=== PATIENT | male | born 1995 | race Hispanic/Latino ===

== ENCOUNTER 2024-02-12 08:03 | Emergency (ER) | payer SELFPAY ==
[2024-02-12 08:04] VITALS: BP 142/98; PULSE 79; RESP 14; TEMP 36.6; O2SAT 98; BMI 23.3
--- NOTE | 2024-02-12 08:25 | ED.VIS.GI ---
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) Abdominal Pain/Flank Pain Onset: Days (Onset 3 days ago) Context: Sudden Onset Timing: Continuous and Waxes and wanes Quality: Burning Location: - (Central abdomen) Current Severity: Mild Maximum Severity: Moderate Worsened by: Nothing Relieved by: - (Better after drinking coffee) Nausea/Vomiting/Emesis GI Symptom: Negative for Nausea or Vomiting Diarrhea/Melena/Hematochezia GI Symptom: Positive for Diarrhea; Negative for Melena or Hematochezia Onset: Days Stool Quality: Positive for Loose and Watery Severity: 14 past 24 hours Associated Symptoms Associated Symptoms: Negative for Dysuria, Frequency, Hematuria or Urgency Narrative Narrative: Patient is a 29-year-old male who is a Chilean-speaking individual. Fire Controlman service was used. His past history is remarkable for traumatic kidney injury requiring emergent surgery. He has a midline scar that goes from the xiphoid to the pubic symphysis. He does endorse chills without fever. He does endorse intermittent diaphoresis. He states the pain is burning and outlines a large [place] around his umbilicus send centimeters in diameter. His scar is well-healed. He denies urologic symptoms. He reports diarrhea. Has not noted blood or mucus in the diarrhea. is ill with similar symptoms. She is going to the bathroom frequently but does not have watery stool. He states he went to the urgent care. He was sent here because of his prior surgery and they would not be able to give him any pain medicine. He denies any recent trauma. He denies skin lesions. He denies similar discomfort. Prior similar symptoms: No Recent Illness/Hospitalization: No PFSH PFSH Medical History no medical history no medical history Home Medications dicyclomine 10 mg capsule 20 mg (2 x 10 mg) PO TIDAC #20 CAPSULES 02/12/24 [Rx Last Taken Unknown] Allergy/AdvReac Type Severity Reaction Status Date / Time No Known Allergies Allergy Verified 02/12/24 08:05 Surgical History (Updated 02/12/24 @ 08:16 by Lazara Donnelly) History of kidney surgery Social History (Updated 02/12/24 @ 08:[address] Dave Tejada MD) household members: spouse Smoking Status: Never smoker alcohol intake: current substance use type: does not use ROS ROS ED Constitutional Constitutional ED: Reports chills and sweats; Denies fever(s), subjective or weight loss ENT ENT ED: Denies ear pain, rhinorrhea or sore throat Cardiovascular Cardiovascular: Denies chest pain or palpitations Respiratory/Chest Respiratory/Chest: Denies cough, dyspnea or dyspnea on exertion Gastrointestinal Gastrointestinal: Reports abdominal pain and diarrhea; Denies constipation, melena, nausea or vomiting Genitourinary Genitourinary ED: Denies dysuria, hematuria or urinary frequency Musculoskeletal Musculoskeletal: Reports back pain; Denies arthralgias, myalgias or neck pain Integumentary Denies rash Neurologic Neurologic: Denies headache(s) Hematologic/Lymphatic Hematologic/Lymphatic: Denies easy bleeding or easy bruising EXAM Physical Exam Const Vital Signs: 02/12/24 08:04 Temperature 98 F Temperature Source Temporal Pulse Rate 79 Respiratory Rate 14 Blood Pressure 142/98 H Blood Pressure Mean 112 Pulse Ox 98 Oxygen Delivery Method Room Air Positive well nourished and well developed General Appearance ED: well developed and NAD HEENT Reports dry mucous membranes normocephalic and atraumatic Mouth ED: Yes dry mucous membranes Mouth: dry mucous membranes Eyes PERRL and EOMs intact bilaterally General Eye ED: Negative for pale conjunctiva or scleral icterus Neck no lymphadenopathy, supple and no JVD Resp normal respiratory effort and clear to auscultation bilaterally Cardio regular rate, regular rhythm, S1 normal heart sound, S2 normal heart sound and no murmurs GI non-tender, non-distended and no masses GI Narrative: There may be slight tympany to percussion. There is a well-healed midline incision. Auscultation: hypoactive bowel sounds Palpation: soft; Negative for tender, guarding, rigid, hepatomegaly, splenomegaly, hernia, mass or pulsatile mass Back/Spine no CVA tenderness Extremity General Extremety ED: Negative for edema or tenderness General Extremity: Negative for edema Neuro CN's II-XII intact bilaterally and moves all extremities Sensorium / Orientation: alert Psych mental status grossly normal and thought process normal Skin no wounds MDM MDM MDM Narrative Medical decision making narrative: # Differential diagnoses abdominal pain unknown etiology, enteritis, colitis, viral illness. Clinically patient is dehydrated. IV was established and 1 L normal saline was ordered. He was ordered dicyclomine for his pain and Imodium for his diarrhea. Patient metabolic panel was obtained to assess renal function and evaluate for hypokalemia and in light of the amount of diarrhea patient is having. History & Record Review Additional record(s) reviewed:: No prior records Lab Data Attestation: I reviewed the patient's lab results. Lab results narrative: CBC is unremarkable. Hemoglobin slightly elevated 17.1 which would be consistent with dehydration. Basic metabolic panel is unremarkable. Glucose slightly elevated 112 with normal CO2 anion gap. Labs: Laboratory Results - last 24 hr 02/12/24 08:40 WBC 7.5 RBC 6.06 Hgb 17.1 H Hct 51.5 MCV 85.0 MCH 28.2 MCHC 33.2 RDW Std Deviation 38.5 RDW Coeff of Komal 12.6 Plt Count 332 MPV 9.7 Immature Gran % (Auto) 0.400 Neut % (Auto) 69.9 Lymph % (Auto) 22.4 Christian % (Auto) 5.9 Eos % (Auto) 0.9 Baso % (Auto) 0.5 Absolute Neuts (auto) 5.2 Absolute Lymphs (auto) 1.67 Nucleated RBC % 0 Sodium 137 Potassium 3.7 Chloride 103 Carbon Dioxide 28.0 Anion Gap 6 BUN 7 Creatinine 0.79 Estim Creat Clear Calc 152.80 Est GFR (MDRD) Af Amer 151 Est GFR (MDRD) Non-Af 125 BUN/Creatinine Ratio 8.9 L Glucose 112 H Calcium 9.7 Treatment and Re-Evaluation :: Patient was reassessed at 0937. Patient reports feeling better. 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 He was informed laboratory results are normal. He was informed with the diagnosis is and plan. He had no questions. Therefore, will discharge to home Discharge Plan Triage Chief Complaint: Abd Pain ED Provider: Dave Tejada Dx/Rx/DC Orders Clinical Impression: Acute dehydration, Abdominal pain, acute, Diarrhea in adult patient Prescriptions: New dicyclomine 10 mg capsule 20 mg PO TIDAC Qty: 20 0RF Referrals: Lashonda Campo [Non-Staff] - 3-5 Days if not improving Activity Restrictions/Additional Instructions: Take Imodium as needed for diarrhea. Print Language: Chilean Disposition Disposition: Home, Self Care
[2024-02-12] MEDS: Loperamide 2 MG Capsule 4 MG PO (08:33)
[2024-02-12] MEDS: Dicyclomine 10 MG Capsule 20 MG PO (08:33)
[2024-02-12] MEDS: 0.9% Normal Saline (1000mL) 1,000 ML 1000 ML IV (08:33)
[2024-02-12 08:51] LABS: Absolute Lymphocyte Count 1.67 X10^3/uL (0.83-4.51); Absolute Neutrophil Count 5.2 X10^3/uL (2.0-7.7); Basophil# 0.04 X10^3/uL; Basophil% 0.5 % (0-1); Eosinophil# 0.07 X10^3/uL; Eosinophils% 0.9 % (0-5); Hematocrit 51.5 % (40-54); Hemoglobin 17.1 g/dL (13.0-16.5); Lymphocyte # 1.67 X10^3/ul (0.83-4.51); Lymphocyte % 22.4 % (19-41); Mean Corp Hgb Conc 33.2 g/dL (32-36); Mean Corpuscular Hgb 28.2 pg (27.0-32.0); Mean Platelet Vol. 9.7 fl (6.2-12.0); Monocyte# 0.44 X10^3/uL; Monocyte% 5.9 % (0-10); NRBC Flagged by Analyzer 0 % (0-5); Neutrophil % 69.9 % (47-70); Platelet Count 332 K/mm3 (150-450); RBC Distribution Width CV 12.6 % (11.6-14.6); RBC Distribution Width SD 38.5 fl (35.1-43.9); Red Blood Count 6.06 M/mm3 (4.6-6.2); White Blood Count 7.5 K/mm3 (4.4-11.0)
[2024-02-12 09:02] LABS: Anion Gap 6 (5-15); BUN 7 mg/dL (7-18); BUN/Creat Ratio 8.9 RATIO (10-20); Calcium,Total 9.7 mg/dL (8.5-10.1); Chloride 103 mmol/L (98-107); Creatinine, Serum 0.79 mg/dL (0.70-1.30); EST Glomerular Filtration Rate 125 mL/min (>60); Est Glom Filt Rate - Afr Amer 151 mL/min (>60); Glucose 112 mg/dL (74-106); Potassium 3.7 mmol/L (3.5-5.1); Sodium Level 137 mmol/L (136-145)
[2024-02-12 10:04] VITALS: BP 132/86; PULSE 76; RESP 14; TEMP 36.7; O2SAT 99
[2024-02-12 10:27] VITALS: BP 132/86; PULSE 76; RESP 14; TEMP 36.7; O2SAT 99
== END 2024-02-12 10:29 | disposition home or self-care (01) ==
LOC: ED 10:21
PROVIDERS: Emergency Provider Emergency Medicine; Visit Provider Emergency Medicine
DX: R10.84 Generalized abdominal pain (principal); R19.7 Diarrhea, unspecified; E86.0 Dehydration
CPT/HCPCS: 80048; 85025; 96360; 99283; J7030; A4216

== ENCOUNTER 2024-02-13 17:40 | Emergency (ER) | payer BC, SELFPAY ==
[2024-02-13 17:41] VITALS: BP 147/100; PULSE 88; RESP 16; TEMP 37.1; O2SAT 98; BMI 23.6
--- NOTE | 2024-02-13 18:45 | CT_ITS ---
STUDY: CT ABDOMEN AND PELVIS WITH CONTRAST REASON FOR EXAM: Male, 29 years old. Abdominal pain RADIATION DOSAGE (If Supplied By Facility): CTDIvol = ( 16.0 ) mGy, DLP = ( 668.16 ) mGycm TECHNIQUE: Transaxial images were obtained from the dome of the diaphragm to the symphysis pubis without oral contrast. Oral and amp; IV Gastrografin and amp; 100mL Isovue-370 was administered. Sagittal and coronal images were reconstructed. Individualized dose optimization techniques were used for this CT. COMPARISON: None. FINDINGS: Mild focal rounded atelectasis in left lower lobe. Mild focal pleural thickening in the right lower lobe. The visualized portions of the heart are within normal limits. Normal liver. Normal gallbladder and extrahepatic biliary system. Normal spleen. Normal pancreas. Normal bilateral adrenal glands. Normal right kidney. Normal left kidney. Normal visualized stomach. Nonspecific ileus pattern without definitive evidence for small bowel obstruction... The appendix is visualized and appears normal. Normal abdominal aorta. Normal inferior vena cava. Normal retroperitoneum. Incompletely distended thick walled bladder of uncertain significance. Normal abdominal wall. Normal osseous structures. CT/Abdomen/Pelvis WITH Contrast IMPRESSION: Nonspecific ileus without definitive evidence for focal small bowel obstruction. Nonspecific rounded atelectasis in left lower lobe Electronically Signed: Palomo Medellin MD at 21:31 EDT ,
--- NOTE | 2024-02-13 18:48 | EDS_ITS ---
HPI HPI - GI History of Present Illness Chief Complaint: Abd Pain Informant: patient Abdominal Pain/Flank Pain Onset: Days (5) Context: Gradual Onset Timing: Continuous Quality: Aching and Cramping Location: LUQ Worsened by: - (Standing up) Relieved by: - (Laying flat) Nausea/Vomiting/Emesis GI Symptom: Positive for Nausea and Vomiting Quality: Positive for Nonbilious; Negative for Blood streaks, Coffee ground or Hematemesis Diarrhea/Melena/Hematochezia GI Symptom: Positive for Diarrhea; Negative for Melena or Hematochezia Associated Symptoms Associated Symptoms: Negative for Dysuria, Frequency or Hematuria Narrative Narrative: Patient presents with abdominal pain that has been getting worse over the past 5 days. Patient was seen here yesterday and had lab work done which was negative. Patient states his pain became worse today. Patient states it is constant. Patient describes it as cramping and aching. Patient states it is worse over the left upper abdomen. Patient states it is worse with standing up and better with laying down. Patient admits to some nausea, vomiting, and diarrhea. Patient denies any hematemesis or coffee-ground emesis. Patient denies any melena or hematochezia. Patient denies any dysuria or hematuria. [facility] Medical History Right inguinal hernia Stroke/cerebrovascular accident Home Medications NK 02/13/24 [History Last Taken Unknown] Allergy/AdvReac Type Severity Reaction Status Date / Time No Known Allergies Allergy Verified 02/12/24 08:05 Surgical History History of kidney surgery Social History household members: spouse Smoking Status: Never smoker alcohol intake: current substance use type: does not use ROS ROS ED Constitutional Constitutional ED: Denies chills or fever(s) Eyes Eyes: Denies blurry vision or change in vision ENT ENT ED: Denies rhinorrhea or sore throat Cardiovascular Cardiovascular: Denies chest pain or palpitations Respiratory/Chest Respiratory/Chest: Denies cough or dyspnea Gastrointestinal Gastrointestinal: Reports abdominal pain, diarrhea, nausea and vomiting Genitourinary Genitourinary ED: Denies dysuria or hematuria Musculoskeletal Musculoskeletal: Denies back pain or neck pain Integumentary Denies abscess or rash Neurologic Neurologic: Denies headache(s) or weakness Allergic/Immunologic Allergic/Immunologic ED: Denies mouth swelling or urticaria EXAM Physical Exam Const Vital Signs: 02/13/24 17:41 02/13/24 19:40 02/13/24 21:00 Temperature 98.7 F Temperature Source Temporal Pulse Rate 88 81 80 Respiratory Rate 16 18 18 Blood Pressure 147/100 H 136/80 H 129/92 H Blood Pressure Mean 115 98 104 Pulse Ox 98 96 98 Oxygen Delivery Method Room Air Room Air Room Air Positive well nourished and well developed General Appearance ED: well developed and NAD HEENT Reports moist mucous membranes Neck supple and no JVD Resp normal respiratory effort and clear to auscultation bilaterally Cardio regular rate and regular rhythm GI non-distended Palpation: soft and tender epigastric, LUQ and periumbilical; Negative for g uarding or rebound tenderness present Neuro CN's II-XII intact bilaterally, moves all extremities and no sensory deficits noted Sensorium / Orientation: alert Motor Exam: strength 5/5 throughout Psych mental status grossly normal MDM MDM MDM Narrative Medical decision making narrative: Differential diagnosis includes pancreatitis, peptic ulcer disease, gastritis, bowel obstruction, perforation, pyelonephritis, and mesenteric adenitis. CBC will be obtained to assess for leukocytosis and anemia. Comprehensive metabolic profile will be obtained to assess for hepatic function, renal function, and electrolyte abnormality. Lipase will be obtained to assess for pancreatitis. Urinalysis will be obtained to assess for urinary tract infection and hematuria. CT scan of the abdomen and pelvis will be obtained to assess for bowel obstruction, perforation, and pyelonephritis. Lab Data Attestation: I reviewed the patient's lab results. Lab results narrative: CBC was reviewed. There is a slight leukocytosis of 11.3. The remainder is within normal limits. Comprehensive metabolic profile was reviewed and was essentially within normal limits. Lipase was reviewed and was normal at 22. Urinalysis was reviewed. There is no evidence of urinary tract infection or hematuria. Labs: Laboratory Results - last 24 hr 02/13/24 02/13/24 19:12 19:18 WBC 11.3 H RBC 5.74 Hgb 16.2 Hct 48.1 MCV 83.8 MCH 28.2 MCHC 33.7 RDW Std Deviation 36.7 RDW Coeff of Komal 12.2 Plt Count 333 MPV 9.4 Immature Gran % (Auto) 0.400 Neut % (Auto) 74.0 H Lymph % (Auto) 19.4 [place] % (Auto) 5.4 Eos % (Auto) 0.4 Baso % (Auto) 0.4 Absolute Neuts (auto) 8.4 H Absolute Lymphs (auto) 2.19 Nucleated RBC % 0 Sodium 138 Potassium 3.6 Chloride 103 Carbon Dioxide 29.0 Anion Gap 6 BUN 8 Creatinine 0.68 L Estim Creat Clear Calc 177.52 Est GFR (MDRD) Af Amer 178 Est GFR (MDRD) Non-Af 147 BUN/Creatinine Ratio 11.7 Glucose 99 Calcium 9.4 Total Bilirubin 0.50 AST 24 ALT 41 Alkaline Phosphatase 74 Total Protein 7.4 Albumin 4.3 Globulin 3.1 Albumin/Globulin Ratio 1.4 Lipase 22 Urine Color Yellow Urine Clarity Clear Urine pH 7.0 Ur Specific [place] 1.010 Urine Protein Negative Urine Glucose (UA) Normal Urine Ketones Negative Urine Occult Blood Negative Urine Nitrite Negative Urine Bilirubin Negative Urine Urobilinogen Normal Ur Leukocyte Esterase Negative Urine RBC 0 SEEN Urine WBC 0 SEEN Ur Squamous Epith Cells 0 SEEN Urine Bacteria 0 SEEN Urine Mucus 0 SEEN Radiography Diagnostic Testing: Clinical Impression(s) from Imaging Studies Abdomen/Pelvis CT 02/13/24 18:45 IMPRESSION: Nonspecific ileus without definitive evidence for focal small bowel obstruction. Nonspecific rounded atelectasis in left lower lobe Electronically Signed: Palomo Medellin MD at 21:31 EDT Reading Location ID and State: [facility] / [place] Tel , Service support , CT scan of the abdomen pelvis was obtained. There is nonspecific ileus but no definite bowel obstruction or perforation. There is no free fluid. There is no free air. This was interpreted by the radiologist was also independently reviewed by myself. Treatment and Re-Evaluation :: Patient was given IV fluids, morphine, and Zofran. Patient was feeling better on reevaluation. Patient was advised of his findings. Patient was given a prescription for Zofran. Patient was instructed to start with a liquid diet and advance as tolerated. Patient was instructed to follow-up with his primary care physician in 5 to 7 days. Patient was instructed to take Tylenol or ibuprofen as needed for any pain or fevers. Patient and friend understood and were agreeable with the plan. All questions were answered. Discharge Plan Triage Chief Complaint: Abd Pain ED Provider: Tonio Ceballos Dx/Rx/DC Orders Clinical Impression: Nausea, vomiting, and diarrhea, Viral illness Instructions: ED Vomit Diarrhea Nonspec Adult Prescriptions: No Action NK Primary Care Provider: Care Physician,No Primary Referrals: Dioni Obrien MD [Med Staff - Proof Coins Inspector] - 3-5 Days Care Physician,No Primary [Primary Care Provider] - Print Language: Lithuanian Disposition Disposition: Home, Self Care
[2024-02-13 19:24] LABS: Bacteria 0 SEEN /hpf (None Seen); Mucous, Urine 0 SEEN /hpf (<or=2+); Red Blood Cells-Urine 0 SEEN /hpf (0-5); Squamous Epithelial Cells - UA 0 SEEN /hpf (0-5); White Blood Cells 0 SEEN /hpf (0-5)
[2024-02-13 19:25] LABS: Absolute Lymphocyte Count 2.19 X10^3/uL (0.83-4.51); Absolute Neutrophil Count 8.4 X10^3/uL (2.0-7.7); Basophil# 0.05 X10^3/uL; Basophil% 0.4 % (0-1); Eosinophil# 0.04 X10^3/uL; Eosinophils% 0.4 % (0-5); Hematocrit 48.1 % (40-54); Hemoglobin 16.2 g/dL (13.0-16.5); Lymphocyte # 2.19 X10^3/ul (0.83-4.51); Lymphocyte % 19.4 % (19-41); Mean Corp Hgb Conc 33.7 g/dL (32-36); Mean Corpuscular Hgb 28.2 pg (27.0-32.0); Mean Corpuscular Volume 83.8 fL (80-94); Mean Platelet Vol. 9.4 fl (6.2-12.0); Monocyte# 0.61 X10^3/uL; Monocyte% 5.4 % (0-10); NRBC Flagged by Analyzer 0 % (0-5); Neutrophil # 8.37 X10^3/uL (2.7-7.7); Platelet Count 333 K/mm3 (150-450); RBC Distribution Width CV 12.2 % (11.6-14.6); RBC Distribution Width SD 36.7 fl (35.1-43.9); Red Blood Count 5.74 M/mm3 (4.6-6.2); White Blood Count 11.3 K/mm3 (4.4-11.0)
[2024-02-13] MEDS: 0.9% Normal Saline (1000mL) 1,000 ML 1000 ML IV (19:25)
[2024-02-13 19:26] LABS: Color, Urine Yellow (Yellow); Glucose, Dipstick Normal (Normal); Ketone-Dipstick Negative (Negative); Leukocyte Esterase-Dipstick Negative /ul (Negative); Nitrite-Dipstick Negative (Negative); Occult Blood-Urine Negative /ul (Negative); Protein-Dipstick Negative (Negative); Urine Bilirubin Dipstick Negative (Negative); Urine Clarity Clear (Clear); Urine Urobilinogen Normal (Normal)
[2024-02-13] MEDS: Morphine 4 MG/ML Syringe IV (19:26)
[2024-02-13] MEDS: Ondansetron 4 MG/2 ML Vial IV (19:26)
[2024-02-13 19:40] VITALS: BP 136/80; PULSE 81; RESP 18; O2SAT 96
[2024-02-13 19:44] LABS: ALB/GLOB Ratio 1.4 RATIO (0.9-2.4); AST(SGOT) 24 U/L (15-37); Alanine Aminotransfer ALT/SGPT 41 U/L (16-61); Albumin, Serum 4.3 g/dL (3.2-5.0); Alkaline Phosphatase 74 U/L (45-117); Anion Gap 6 (5-15); BUN 8 mg/dL (7-18); BUN/Creat Ratio 11.7 RATIO (10-20); Calcium,Total 9.4 mg/dL (8.5-10.1); Chloride 103 mmol/L (98-107); Creatinine, Serum 0.68 mg/dL (0.70-1.30); EST Glomerular Filtration Rate 147 mL/min (>60); Est Glom Filt Rate - Afr Amer 178 mL/min (>60); Estimated Creatinine Clearance 177.52 ml/min; Globulin 3.1 g/dL (2.2-4.2); Glucose 99 mg/dL (74-106); Lipase 22 U/L (13-75); Potassium 3.6 mmol/L (3.5-5.1); Protein, Total 7.4 g/dL (6.4-8.2); Sodium Level 138 mmol/L (136-145)
[2024-02-13 21:00] VITALS: BP 129/92; PULSE 80; RESP 18; O2SAT 98
[2024-02-13 23:00] VITALS: BP 130/90; PULSE 86; RESP 16
[2024-02-13 23:41] VITALS: BP 130/90; PULSE 79; RESP 18; TEMP 36.7; O2SAT 98
== END 2024-02-13 23:41 | disposition home or self-care (01) ==
PROVIDERS: Emergency Provider Emergency Medicine; Visit Provider Emergency Medicine
DX: B34.9 Viral infection, unspecified (principal)
CPT/HCPCS: 74177; 80053; 81001; 83690; 85025; 96361; 96374; 96375; 99283; J7030; Q9967; A4216; J2405

== ENCOUNTER 2025-05-25 16:55 | Emergency (ER) | payer OTHER, SELFPAY ==
[2025-05-25 16:56] VITALS: BP 138/87; PULSE 83; RESP 16; TEMP 36.8; O2SAT 100; BMI 24.3
--- NOTE | 2025-05-25 20:05 | EDS_ITS ---
HPI History of Present Illness Chief Complaint: Male Pain/Injury Narrative Narrative: 30-year-old male presents with right inguinal hernia that has become larger over the last 2 years. He states that it is affecting his work. He has had a known hernia chronically but he thinks that over the last 2 years it has gotten much bigger. He denies any fevers or chills, no nausea or vomiting, no problems with bowel movements. While the area is gotten larger, it is not gotten firmer or hardened. He presents with right inguinal hernia that has enlarged. PFSH PFS Medical History Right inguinal hernia Stroke/cerebrovascular accident Home Medications ?Medication ?Instructions ?Recorded ?Last Taken ?Type NK 05/25/25 Unknown History Allergy/AdvReac Type Severity Reaction Status Date / Time No Known Allergies Allergy Verified 05/25/25 16:58 Surgical History History of kidney surgery Social History household members: spouse Smoking Status: Never smoker alcohol intake: current substance use type: does not use ROS ROS ED ROS Narrative Review of systems positive for right inguinal hernia enlarging over the last 2 years. No fevers or chills, no nausea or vomiting, no reduction of flatulence, no problems with bowel movements. No firmness or redness to the area. EXAM Physical Exam Narrative Exam Narrative: Afebrile. Vital signs noted. Nontoxic-appearing. Cardiovascular examination reveals regular rate and rhythm. Lungs are clear to auscultation bilaterally. Abdomen is soft and nontender without guarding or rebound. Well-healed laparotomy scar. Chaperoned examination of the testicles and right inguinal area show no testicular tenderness. There is a large reducible hernia without induration or erythema. Given 1 reduced, upon standing, contents immediately distal and into upper scrotal area. Const Vital Signs: 05/25/25 16:56 05/25/25 20:10 05/25/25 20:11 Temperature 98.2 F 98.7 F Temperature Source Oral Pulse Rate 83 77 77 Respiratory Rate 16 18 Blood Pressure 138/87 H 140/72 H Blood Pressure Mean 104 94 Pulse Ox 100 99 Oxygen Delivery Method Room Air MDM MDM MDM Narrative Medical decision making narrative: Differential diagnosis includes but not limited to reducible hernia versus incarcerated hernia. I do not feel he needs laboratory work or imaging. This hernia is reducible but the opening is large enough to the point where even after reduction, contents the send again. I used a third-alliance party behavioral psychologist and explained to the patient and his mother that he needs follow-up with a general surgeon for hernia repair. He was referred to Dr. Betts on-call for general surgery. At this point in time, he was given strict return instructions includi ng redness or firmness to the area, fever, nausea or vomiting, problems with bowel movements, new or worsening symptoms. Disposition is discharged home in stable condition. History & Record Review Discussion w/independent historian: Patient and Family Discharge Plan Triage Chief Complaint: Male Pain/Injury ED Provider: Rolando Shelton Dx/Rx/DC Orders Clinical Impression: Reducible right inguinal hernia, Encounter for medical screening examination Instructions: ED Hernia (Adult), ED Screening Exam Medical Nonurgent Prescriptions: No Action NK Primary Care Provider: Care Physician,No Primary Referrals: Melissa Segura [Other] Lolita Betts MD [Med Staff - Active Staff] - As soon as possible Care Physician,No Primary [Primary Care Provider] - Activity Restrictions/Additional Instructions: Return to the emergency department with increased pain to your right groin, redness or firmness to the hernia, fever, nausea and vomiting, problems with bowel movements/lack of bowel movement, new or worsening symptoms. Follow-up with general surgery as soon as possible. Print Language: Romanian Disposition Disposition: Home, Self Care Discharge Date/Time: 05/25/25 20:18
[2025-05-25 20:10] VITALS: BP 140/72; PULSE 77; RESP 18; TEMP 37.1; O2SAT 99
[2025-05-25 20:11] VITALS: PULSE 77
== END 2025-05-25 20:18 | disposition home or self-care (01) ==
LOC: ED 20:15
PROVIDERS: Emergency Provider Emergency Medicine; Visit Provider Emergency Medicine
DX: K40.90 Unilateral inguinal hernia, without obstruction or gangrene, not specified as recurrent (principal); Z86.73 Personal history of transient ischemic attack (TIA), and cerebral infarction without residual deficits
CPT/HCPCS: 99282

== ENCOUNTER 2025-06-10 06:59 | Day surgery (SDC) | payer OTHER, SELFPAY ==
[2025-06-10] VITALS (10 sets, daily range): BP systolic 105–123; BP diastolic 68–86; PULSE 65–80; RESP 16–20; TEMP 36.1–37.1; O2SAT 96–100; BMI 24.5
--- OUTSIDE RECORDS SUMMARY | 2025-06-10 07:04 | XMS RPT_ITS | CCD ---
Author Organization [facility] Care Team Providers Care Spa Attendant Name Role Phone Care Physician, No Primary Primary Care Provider Unavailable Rolando Shelton MD Emergency Provider Rolando Shelton MD Attending Provider [phone] Care Physician, No Primary Referring Provider Un available Alpesh OLIVIA, Dr. Mchugh Attending Provider Lolita Betts Attending Unavailable Care Physician, No Primary Primary Care Unava ilable Care Physician, No Primary Referring Unava ilable Lolita Betts Attending Unavailable Care Physician, No Primary Primary Care Unava ilable Rolando Shelton Attending Unavailable Care Physician, No Primary Primary Care Unava ilable Medications Current Medications Medication Drug Class(es) Dates Sig (Normalized) Sig (Original) [place] (Nk) (2 sources) Start: 05-25-2025 [place] (Nk) A ctive May 25, 2025 12:00am Completed/Discontinued Medications Medication Drug Class(es) Dates Sig (Normalized) Sig (Original) dicyclomine hydrochloride 10 mg oral capsule (4 sources) Anticholinergic Start: 02-12-2024 End: 02-13-2024 take 2 capsules by mouth three times daily before mealtime Dicyclomine 10 mg capsule Discontinued 20 mg PO THREE TIMES DAILY BEFORE MEALS 20 February 12, 2024 12:00am February 13, 2024 7:28pm Start: 02-12-2024 End: 02-13-2024 take 20 mg by mouth three times daily before mealtime Dicyclomine Discontinued 20 MG PO THREE TIMES DAILY BEFORE MEALS February 12, 2024 12:00am February 13, 2024 7:28pm ondansetron 4 mg disintegrating oral tablet (3 sources) Serotonin-3 Receptor Antagonist Start: 02-13-2024 End: 05-25-2025 take 1 tablet by mouth every eight hours as needed for nausea Ondansetron 4 mg tablet,disintegrating Discontinued 4 mg PO EVERY 8 HOURS NEEDED as needed for Nausea 10 0 February 13, 2024 12:00am May 25, 2025 7:59pm Problems Problem Classification Problem Date Documented Da te Episodic/Chronic Abdominal hernia (4 sources) Right inguinal hernia ; Translations: [Unilateral inguinal hernia, without obstruction or gangrene, not specified as recurrent] Onset: 06-05-2025 05-25-2025 Episodic Abdominal pain (4 sources) Acute abdominal pain; Translations: [Unspecified abdominal pain] 02-12-2024 Episodic Fluid and electrolyte disorders (4 sources) Dehydration; Translations: [Dehydration] 02-12-2024 Episodic Nausea and vomiting (3 sources) Nausea, vomiting and diarrhea; Translations: [Nausea with vomiting, unspecified] 02-13-2024 Episodic Other gastrointestinal disorders (4 sources) Diarrhea; Translations: [Diarrhea, unspecified] 02-12-2024 Episodic Other screening for suspected conditions (not mental disorders or infectious disease) (2 sources) Patient encounter status; Translations: [Encounter for screening, unspecified] 05-25-2025 Episodic Viral infection (3 sources) Viral disease; Translations: [Viral infection, unspecified] 02-13-2024 Episodic Results Test Name Value Interpretation Reference Range Facility Surgery Visit Reporton 06-03 Surgery Visit Report [facility] [address] [place] [address]. [address] [place] [address] OFFICE VISIT Date of Service: 06/03/25 MR#: [id number] Acct: [id number] Name: MELY HENRY Rep #: [id number] : 1995 Provider: Dr. Lolita webber MD Age/Sex: 30/M Location: [facility] Status: Signed Intake Vital Signs 05/25/25 16:56 06/03/25 15:20 Height 6 ft 6 ft Weight: 179 lb BMI 24.3 BP 113/79 Blood Pressure Location Lt brachial Position Sitting Respiration 17 Pulse 89 Pulse Source Monitor Pulse Oximetry (%) 99 Oxygen Delivery Method room air Intake Visit Reasons: ED F/U- INGUINAL HERNIA Chief Complaint: ED F/U inguinal hernia Halftone Operator Required: Yes Is patient in pain?: No Allergies No Known Allergies Allergy (Verified 06/03/25 15:23) Medications ???Medication ???Instructions ???Recorded ???Confirmed ???Type NK 05/25/25 06/03/25 History PFSH Medical History (Updated 06/03/25 @ 16:[address] Lolita Betts MD) Right inguinal hernia Stroke/cerebrovascu lar accident Surgical History (Updated 06/03/25 @ 16:[address] Lolita Betts MD) History of kidney surgery Family History (Updated 06/03/25 @ 15:19 by Solange Bates) Mother Diabetes Hypertension Social History (Updated 06/03/25 @ 15:20 by Solange Bates) household members: spouse Smoking Status: Never smoker alcohol intake: current alcohol intake frequency: a few times a week Alcohol type: beer substance use type: marijuana HPI HPI HPI: 30-year-old male presents due to right inguinal hernia. Patient is British-speaking only history was obtained via medical assistant dermatology. Patient states she has had it for 2 years however has been getting larger over time and does do heavy lifting for work and he has a bulge and this is bothersome. Patient states occasionally does get hard patient does reduce at home. Patient did previously have surgery in [facility] in 2019 that he may have had cancer in the stomach or kidney found out is just bleeding and patient had ex lap and drain placements after that. Following surgery patient did also have stroke which he just took anticoagulation. ROS General General: No weight change, appetite, fatigue, colon cancer or breast cancer HEENT HEENT: No difficulty swallowing, eye injury, eye surgery, swollen glands or hoarseness Endo Endocrine: No thyroid disease, diabetes mellitus, thyroid cancer, Hair loss, heat intolerance or cold intolerance Skin Skin: No rash or changing moles Musc Musculoskeletal: No back problems, arthritis, rheumatoid arthritis, gout or joint pain Cardio Cardiovascular: No murmur, pacemaker, heart disease, atrial fibrillation, high blood pressure, heart attack, heart stent, palpitations, shortness of breath with exertion or chest pain Psych Psychiatric: No depression, anxiety or hearing voices Resp Respiratory: No shortness of breath, No sleep apnea, No cough, No COPD, No asthma, No emphysema and No wheezing Gastro Gastrointestinal: No abdominal pain, No nausea or vomiting, Yes diarrhea, No constipation, No blood in stool, No acid reflux, No hemorrhoids, No ulcers, No gallbladder problem and No black,tarry stools Reyes Hematologic: No blood thinners, No blood disorders, No bleeding, No anemia and No blood clots Neuro Neurologic: No numbness and No tingling ROS Narrative h/o stroke approx 6 years ago Exam Const General: cooperative, healthy appearing, comfortable and no acute distress [facility] Head: normocephalic and atraumatic Neck Neck: supple Resp Effort Inspection: normal respiratory effort Cardio Rate: regular rate GI Inspection: non-distended and scar (Well-healed midline incision bilateral mid abdomen previous drain sites) Palpation: soft, hernia (Large right inguinal hernia-reducible) and nontender Skin General: no rashes or lesions noted Neuro General: CN's II-XI intact bilaterally Extrem General: normal to inspection Psych Mental Status: mental status grossly normal Attitude: cooperative Assessment and Plan Assessment and Plan (1) Right inguinal hernia: Status: Acute Plan Plan to do a open right inguinal hernia repair with mesh due to patient's previous large midline incision. Reviewed the procedure with the patient including the risks, including but not limited to infection, bleeding, paresthesia, chronic pain, injury to small bowel or contents of the spermatic cord, and recurrence. All questions were answered. Lolita Betts M.D. Pager: [phone] [facility] [address] [place] [address], [address] [place] [id number] Office: [phone] Coding Level of Care Code Off vis,new,level 4 Diagnoses Right inguinal hernia K40.90 06/03/25 (more content not included)... Normal [facility] Emergency Department Summary on 05-25-2025 Emergency Department Summary [facility] Medical Records Department [address] [place] [address] Emergency Department Summary 05/25/25 MR#: [id number] Acct: [id number] Name: ELIAS PIKEMELY MORALES Rep #: [id number] : 1995 30 From: Rolando Shelton MD PCP: Care Physician,No Primary Status:DEP ER Location: ED HPI History of Present Illness Chief Complaint: Male Pain/Injury Narrative Narrative: 30-year-old male presents with right inguinal hernia that has become larger over the last 2 years. He states that it is affecting his work. He has had a known hernia chronically but he thinks that over the last 2 years it has gotten much bigger. He denies any fevers or chills, no nausea or vomiting, no problems with bowel movements. While the area is gotten larger, it is not gotten firmer or hardened. He presents with right inguinal hernia that has enlarged. [facility] Medical History Right inguinal hernia Stroke/cerebrovascu lar accident Home Medications ???Medication ???Instructions ???Recorded ???Last Taken ???Type NK 05/25/25 Unknown History Allergy/AdvReac Type Severity Reaction Status Date / Time No Known Allergies Allergy Verified 05/25/25 16:58 Surgical History History of kidney surgery Social History household members: spouse Smoking Status: Never smoker alcohol intake: current substance use type: does not use ROS ROS ED ROS Narrative Review of systems positive for right inguinal hernia enlarging over the last 2 years. No fevers or chills, no nausea or vomiting, no reduction of flatulence, no problems with bowel movements. No firmness or redness to the area. EXAM Physical Exam Narrative Exam Narrative: Afebrile. Vital signs noted. Nontoxic-appearing. Cardiovascular examination reveals regular rate and rhythm. Lungs are clear to auscultation bilaterally. Abdomen is soft and nontender without guarding or rebound. Well-healed laparotomy scar. Chaperoned examination of the testicles and right inguinal area show no testicular tenderness. There is a large reducible hernia without induration or erythema. Given 1 reduced, upon standing, contents immediately distal and into upper scrotal area. Const Vital Signs: 05/25/25 16:56 05/25/25 20:10 05/25/25 20:11 Temperature 98.2 F 98.7 F Temperature Source Oral Pulse Rate 83 77 77 Respiratory Rate 16 18 Blood Pressure 138/87 H 140/72 H Blood Pressure Mean 104 94 Pulse Ox 100 99 Oxygen Delivery Method Room Air MDM MDM MDM Narrative Medical decision making narrative: Differential diagnosis includes but not limited to reducible hernia versus incarcerated hernia. I do not feel he needs laboratory work or imaging. This hernia is reducible but the opening is large enough to the point where even after reduction, contents the send again. I used a third-green party sea captain and explained to the patient and his mother that he needs follow-up with a general surgeon for hernia repair. He was referred to Dr. Betts on-call for general surgery. At this point in time, he was given strict return instructions including redness or firmness to the area, fever, nausea or vomiting, problems with bowel movements, new or worsening symptoms. Disposition is discharged home in stable condition. History Record Review Discussion w/independent historian: Patient and Family Discharge Plan Triage Chief Complaint: Male Pain/Injury ED Provider: Rolando Shelton Dx/Rx/DC Orders Clinical Impression: Reducible right inguinal hernia, Encounter for medical screening examination Instructions: ED Hernia (Adult), ED Screening Exam Medical Nonurgent Prescriptions: No Action NK Primary Care Provider: Care Physician,No Primary Referrals: Melissa Segura [Other] Lolita Betts MD [Med Staff - Active Staff] - As soon as possible Care Physician,No Primary [Primary Care Provider] - Activity Restrictions/Additi onal Instructions: Return to the emergency department with increased pain to your right groin, redness or firmness to the hernia, fever, nausea and vomiting, problems with bowel movements/lack of bowel movement, new or worsening symptoms. Follow-up with general surgery as soon as possible. Print Language: British Disposition Disposition: Home, Self Care Discharge Date/Time: 05/25/25 20:18 What to do if you have Problems For any increased pain, shortness of breath, bleeding, nausea or vomiting, chest pain, or any unexpected problems, contact your Primary Care Provider. Call [facility] ([phone]) or report to the closest Emergency Room. Call 911 if necessary. 05/25/25 2242 Cosigner Signature (if (more content not included)... Normal [facility] Absolute lymphocyte countOrd ered By: Tonio Ceballos on 02-13-2024 Lymphocytes Auto (Unsp spec) [#/Vol] 2.19 10*3/uL 0.83-4.[address] [facility] Automated lymphocyte count a s percentage of total leukocytesOrdered By: Tonio Ceballos on 02-13-2024 Lymphocytes/100 WBC Auto (Unsp spec) 19.4 % 19-[address] [facility] Basophil percentageOrdered B y: Tonio Ceballos on 02-13-2024 Basophils/100 WBC (Bld) 0.4 % 0-1 [facility] Bilirubin [Mass/Vol] 0.50 mg/dL 0.20-1.00 [facility] Comment on above: For patients on eltr ombopag therapy, use of Dimension [place] TBIL is not recommended. Chloride [Moles/Vol] 103 mmol/L 98-107 [facility] Eosinophils/100 WBC (Bld) 0.4 % 0-[address] [facility] Glucose [Mass/Vol] 99 mg/dL 74-106 [facility] Hemoglobin (Bld) [Mass/Vol] 16.2 g/dL 13.0-16.[address] [facility] Monocytes/100 WBC (Bld) 5.4 % 0-10 [facility] Neutrophils (Bld) [#/Vol] 8.4 10*3/uL 2.0-7.[address] [facility] Neutrophils/100 WBC (Bld) 74.0 % 47-[address] [facility] Potassium [Moles/Vol] 3.6 mmol/L 3.5-5.1 [facility] Protein [Mass/Vol] 7.4 g/dL 6.4-8.2 [facility] Sodium [Moles/Vol] 138 mmol/L 136-145 [facility] WBC (Bld) [#/Vol] 11.3 10*3/uL 4.4-11.0 [facility] Basophil percentage 0 SEEN /hpf 0-5 [facility] Bilirubin Test strip Ql (U)O rdered By: Tonio Ceballos on 02-13-2024 Bilirubin Ql (U) Negative Negative [facility] Determination of erythrocyte mean corpuscular volume (MCV)Ordered By: Tonio Ceballos on 02-13-2024 MCV (RBC) [Entitic vol] 83.8 fL 80-94 [facility] Erythrocyte distribution wid th ratioOrdered By: Tonio Ceballos on 02-13-2024 Erythrocyte distribution width (RBC) [Ratio] 12.2 % 11.6-14.[address] [facility] Erythrocyte distribution wid th standard deviationOrdered By: Tonio Ceballos on 02-13-2024 Erythrocyte distribution width (RBC) [Entitic vol] 36.7 fL 35.1-43.9 [facility] Hematocrit Auto (Bld) [Volum e fraction]Ordered By: Tonio Ceballos on 02-13-2024 Hematocrit (Bld) [Volume fraction] 48.1 % 40-[address] [facility] Immature granulocytes/100 WB C Auto (Bld)Ordered By: Tonio Ceballos on 02-13-2024 Immature granulocytes/100 WBC (Bld) 0.400 % 0.0-0.[address] [facility] Comment on above: IG% - Immature Granu locytes (promyelocytes, myelocytes and metamyelocytes) > 1% indicates that a LEFT SHIFT is Present. Ketones Test strip Ql (U)Ord ered By: Tonio Ceballos on 02-13-2024 Ketones Ql (U) Negative Negative [facility] Laboratory - Chemistry and C hemistry - challengeOrdered By: Tonio Ceballos on 02-13-2024 Albumin/Globulin [Mass ratio] 1.4 {ratio} 0.9-2.[address] [facility] ALP [Catalytic activity/Vol] 74 U/L 45-[address] [facility] ALT [Catalytic activity/Vol] 41 U/L 16-[address] [facility] CO2 [Moles/Vol] 29.0 mmol/L 21.0-32.[address] [facility] Globulin (S) [Mass/Vol] 3.1 g/dL 2.2-4.2 [facility] Lipase [Catalytic activity/Vol] 22 U/L 13-[address] [facility] Comment on above: Please note:LIPASE r evised reference range effective 23. New Lipase methodology. Expected to produce lower values than the previous assay method. NEW Reference Range: 13 - 75 U/L Urea nitrogen/Creatinine [Mass ratio] 11.7 mg/mg 10-[address] [facility] Laboratory - Hematology and Cell countsOrdered By: Tonio Ceballos on 02-13-2024 MCH (RBC) [Entitic mass] 28.2 pg 27.0-32.[address] [facility] MCHC (RBC) [Mass/Vol] 33.7 g/dL 32-36 [facility] Nucleated RBC/100 WBC (Bld) [Ratio] 0 % 0-[address] [facility] Platelet mean volume (Bld) [Entitic vol] 9.4 fL 6.2-12.[address] [facility] Platelets (Bld) [#/Vol] 333 10*3/uL 150-[address] [facility] Mucus LM Ql (Urine sed)Order ed By: Tonio Ceballos on 02-13-2024 Mucus Ql (Urine sed) 0 SEEN /hpf [facility] Nitrite Test strip Ql (U)Ord ered By: Tonio Ceballos on 02-13-2024 Nitrite Ql (U) Negative Negative [facility] No Panel InformationOrdered By: Tonio Ceballos on 02-13-2024 Estimated Creatinine Clearance Calc 177.52 ml/min [facility] Estimated GFR (MDRD) Amer 178 mL/min >[address] [facility] Comment on above: GFR Calc Estimated GFR (MDRD) Non-Af Amer 147 mL/min >[address] [facility] Comment on above: Non- GFR Calc Urine RBC 0 SEEN /hpf 0-[address] [facility] Protein Test strip Ql (U)Ord ered By: Tonio Ceballos on 02-13-2024 Protein Ql (U) Negative Negative [facility] RBC Auto (Bld) [#/Vol]Ordere d By: Tonio Ceballos on 02-13-2024 RBC (Bld) [#/Vol] 5.74 10*6/uL 4.6-6.2 [facility] Serum or plasma calcium barbi urement (mass/volume)Ordered By: Tonio Ceballos on 02-13-2024 Calcium [Mass/Vol] 9.4 mg/dL 8.5-10.1 [facility] Serum or plasma creatinine m easurement (mass/volume)Ordered By: Tonio Ceballos on 02-13-2024 Creatinine [Mass/Vol] 0.68 mg/dL 0.70-1.30 [facility] Comment on above: The validity of the calculated GFR & GFRAA in patients over 70 years has not been determined. Clinical correlation is essential. Serum or plasma urea nitroge n measurement (mass/volume)Ordered By: Tonio Ceballos on 02-13-2024 Urea nitrogen [Mass/Vol] 8 mg/dL 7-[address] [facility] Squamous epithelial cells de tection in urine sediment by light microscopyOrdered By: Tonio Ceballos on 02-13-2024 Epithelial cells.squamous LM Ql (Urine sed) 0 SEEN /hpf 0-[address] [facility] Thin prep Papanicolaou smear with manual screeningOrdered By: Tonio Ceballos on 02-13-2024 Thin prep Papanicolaou smear with manual screening 4.3 g/dL 3.2-5.[address] [facility] Thin prep Papanicolaou smear with manual screening 24 U/L 15-[address] [facility] Thin prep Papanicolaou smear with manual screening 6 5-[address] [facility] Urine blood detectionOrdered By: Tonio Ceballos on 02-13-2024 RBC Ql (U) Negative Negative [facility] Urine clarityOrdered By: Bozena Ceballos on 02-13-2024 Clarity (U) Clear Clear [facility] Urine color determinationOrd ered By: Tonio Ceballos on 02-13-2024 Color (U) Yellow Yellow [facility] Urine glucose detectionOrder ed By: Tonio Ceballos on 02-13-2024 Glucose Ql (U) Normal mg/dl Normal [facility] Urine leukocyte esterase det ection by dipstickOrdered By: Tonio Ceballos on 02-13-2024 Leukocyte esterase Test strip Ql (U) Negative Negative [facility] Urine pHOrdered By: Tonio bishop on 02-13-2024 pH (U) 7.0 [pH] 5.0 - 8.[address] [facility] Urine sediment bacteria coun t by microscopy (number/high power field)Ordered By: Tonio Ceballos on 02-13-2024 Bacteria LM.HPF (Urine sed) [#/Area] 0 /[HPF] None Seen [facility] Urine specific gravity measu rementOrdered By: Tonio Ceballos on 02-13-2024 Specific gravity (U) [Rel density] 1.010 1.002-1.[address] [facility] Urine urobilinogen measureme ntOrdered By: Tonio Ceballos on 02-13-2024 Urobilinogen Ql (U) Normal mg/dl Normal [facility] Absolute lymphocyte countOrd ered By: Dave Tejada on 02-12-2024 Lymphocytes Auto (Unsp spec) [#/Vol] 1.67 10*3/uL 0.83-4.[address] [facility] Automated lymphocyte count a s percentage of total leukocytesOrdered By: Dave Tejada on 02-12-2024 Lymphocytes/100 WBC Auto (Unsp spec) 22.4 % 19-[address] [facility] Basophil percentageOrdered B y: Dave eTjada on 02-12-2024 Basophils/100 WBC (Bld) 0.5 % 0-1 [facility] Chloride [Moles/Vol] 103 mmol/L 98-107 [facility] Eosinophils/100 WBC (Bld) 0.9 % 0-[address] [facility] Glucose [Mass/Vol] 112 mg/dL 74-106 [facility] Comment on above: Fasting Glucose resu lt from 100 to 125 mg/dL suggests IMPAIRED HOMEOSTASIS per A.D.A. criteria. Hemoglobin (Bld) [Mass/Vol] 17.1 g/dL 13.0-16.[address] [facility] Monocytes/100 WBC (Bld) 5.9 % 0-10 [facility] Neutrophils (Bld) [#/Vol] 5.2 10*3/uL 2.0-7.[address] [facility] Neutrophils/100 WBC (Bld) 69.9 % 47-[address] [facility] Potassium [Moles/Vol] 3.7 mmol/L 3.5-5.1 [facility] Sodium [Moles/Vol] 137 mmol/L 136-145 [facility] WBC (Bld) [#/Vol] 7.5 10*3/uL 4.4-11.0 [facility] Determination of erythrocyte mean corpuscular volume (MCV)Ordered By: Daveteja Tejada on 02-12-2024 MCV (RBC) [Entitic vol] 85.0 fL 80-94 [facility] Erythrocyte distribution wid th ratioOrdered By: Daveteja Tejada on 02-12-2024 Erythrocyte distribution width (RBC) [Ratio] 12.6 % 11.6-14.[address] [facility] Erythrocyte distribution wid th standard deviationOrdered By: Daveteja Tejada on 02-12-2024 Erythrocyte distribution width (RBC) [Entitic vol] 38.5 fL 35.1-43.9 [facility] Hematocrit Auto (Bld) [Volum e fraction]Ordered By: Dave Tejada on 02-12-2024 Hematocrit (Bld) [Volume fraction] 51.5 % 40-[address] [facility] Immature granulocytes/100 WB C Auto (Bld)Ordered By: Dave Tejada on 02-12-2024 Immature granulocytes/100 WBC (Bld) 0.400 % 0.0-0.[address] [facility] Comment on above: IG% - Immature Granu locytes (promyelocytes, myelocytes and metamyelocytes) > 1% indicates that a LEFT SHIFT is Present. Laboratory - Chemistry and C hemistry - challengeOrdered By: Daveteja Tejada on 02-12-2024 CO2 [Moles/Vol] 28.0 mmol/L 21.0-32.[address] [facility] Urea nitrogen/Creatinine [Mass ratio] 8.9 mg/mg 10-[address] [facility] Laboratory - Hematology and Cell countsOrdered By: Daveteja Tejada on 02-12-2024 MCH (RBC) [Entitic mass] 28.2 pg 27.0-32.[address] [facility] MCHC (RBC) [Mass/Vol] 33.2 g/dL 32-36 [facility] Nucleated RBC/100 WBC (Bld) [Ratio] 0 % 0-[address] [facility] Platelet mean volume (Bld) [Entitic vol] 9.7 fL 6.2-12.[address] [facility] Platelets (Bld) [#/Vol] 332 10*3/uL 150-[address] [facility] No Panel InformationOrdered By: Dave Tejada on 02-12-2024 Estimated Creatinine Clearance Calc 152.80 ml/min [facility] Estimated GFR (MDRD) Amer 151 mL/min >[address] [facility] Comment on above: GFR Calc Estimated GFR (MDRD) Non-Af Amer 125 mL/min >[address] [facility] Comment on above: Non- GFR Calc RBC Auto (Bld) [#/Vol]Ordere d By: Dave Tejada on 02-12-2024 RBC (Bld) [#/Vol] 6.06 10*6/uL 4.6-6.2 [facility] Serum or plasma calcium barbi urement (mass/volume)Ordered By: Dave Tejada on 02-12-2024 Calcium [Mass/Vol] 9.7 mg/dL 8.5-10.1 [facility] [place] Serum or plasma creatinine m easurement (mass/volume)Ordered By: Dave Tejada on 02-12-2024 Creatinine [Mass/Vol] 0.79 mg/dL 0.70-1.30 [facility] Comment on above: The validity of the calculated GFR & GFRAA in patients over 70 years has not been determined. Clinical correlation is essential. Serum or plasma urea nitroge n measurement (mass/volume)Ordered By: Dave Tejada on 02-12-2024 Urea nitrogen [Mass/Vol] 7 mg/dL 7-[address] [facility] Thin prep Papanicolaou smear with manual screeningOrdered By: Dave Tejada on 02-12-2024 Thin prep Papanicolaou smear with manual screening 6 5-[address] [facility] Vital Signs Date Time Vital Sign Value Performing Clinician Ashwinii lity 06-03-2025 15:20-0400 Body height 182.88 cm No Primary Care Physician [facility] 06-03-2025 15:20-0400 Body mass index (BMI) [Ratio] 24.3 kg/m2 No Primary Care Physician [facility] 06-03-2025 15:20-0400 Body weight 81.19 kg No Primary Care Physician [facility] 06-03-2025 15:20-0400 Diastolic blood pressure 79 mm[Hg] No Primary Care Physician [facility] 06-03-2025 15:20-0400 Heart rate 89 /min No Primary Care Physician [facility] 06-03-2025 15:20-0400 Respiratory rate 17 /min No Primary Care Physician [facility] 06-03-2025 15:20-0400 SaO2% (BldA) [Mass fraction] 99 % No Primary Care Physician [facility] 06-03-2025 15:20-0400 Systolic blood pressure 113 mm[Hg] No Primary Care Physician [facility] 05-25-2025 20:11-0400 Heart rate 77 /min No Primary Care Physician [facility] 05-25-2025 20:10-0400 Body temperature 98.7 [degF] No Primary Care Physician [facility] 05-25-2025 20:10-0400 Diastolic blood pressure 72 mm[Hg] No Primary Care Physician [facility] 05-25-2025 20:10-0400 Respiratory rate 18 /min No Primary Care Physician [facility] 05-25-2025 20:10-0400 SaO2% (BldA) [Mass fraction] 99 % No Primary Care Physician [facility] 05-25-2025 20:10-0400 Systolic blood pressure 140 mm[Hg] No Primary Care Physician [facility] 05-25-2025 16:56-0400 Body height 182.88 cm No Primary Care Physician [facility] 05-25-2025 16:56-0400 Body mass index (BMI) [Ratio] 24.3 kg/m2 No Primary Care Physician [facility] 05-25-2025 16:56-0400 Body weight 81.33 kg No Primary Care Physician [facility] 02-13-2024 23:41-0400 Body temperature 98 [degF] [facility] 02-13-2024 23:41-0400 Diastolic blood pressure 90 mm[Hg] [facility] 02-13-2024 23:41-0400 Heart rate 79 /min [facility] 02-13-2024 23:41-0400 Respiratory rate 18 /min [facility] 02-13-2024 23:41-0400 SaO2% (BldA) [Mass fraction] 98 % [facility] 02-13-2024 23:41-0400 Systolic blood pressure 130 mm[Hg] [facility] 02-13-2024 17:41-0400 Body height 182.88 cm [facility] 02-13-2024 17:41-0400 Body mass index (BMI) [Ratio] 23.6 kg/m2 [facility] 02-13-2024 17:41-0400 Body weight 79.06 kg [facility] 02-12-2024 10:27-0400 Body temperature 98.1 [degF] [facility] 02-12-2024 10:27-0400 Diastolic blood pressure 86 mm[Hg] [facility] 02-12-2024 10:27-0400 Heart rate 76 /min [facility] 02-12-2024 10:27-0400 Respiratory rate 14 /min [facility] 02-12-2024 10:27-0400 SaO2% (BldA) [Mass fraction] 99 % [facility] 02-12-2024 10:27-0400 Systolic blood pressure 132 mm[Hg] [facility] 02-12-2024 08:04-0400 Body height 182.88 cm [facility] 02-12-2024 08:04-0400 Body mass index (BMI) [Ratio] 23.3 kg/m2 [facility] 02-12-2024 08:040400 Body weight 78.3 kg [facility] Encounters Encounter Date Encounter Type Care Provider Facility Start: 06-10-2025 ambulatory Lolita Rodarte :[facility] Start: 06-03-2025 End: 06-03-[address] Lolita Betts MD -[facility] Work Phone: Start: 06-03-2025 End: 06-03-2025 ambulatory No Primary Care Physician -[facility] Start: 05-25-2025 End: 05-25-2025 Emergency department patient visit No Primary Care Physician -Emergency Department Work Phone: Start: 02-13-2024 End: 02-13-2024 Emergency department patient visit [facility] Work Phone: Start: 02-12-2024 End: 02-12-2024 Emergency department patient visit [facility] Work Phone: Procedures Date Procedure Procedure Detail Performing Clinician Start: 02-13-2024 Computed tomography of abdomen and pelvis with contrast Plan of Treatment Date Care Activity Detail Author Start: 05-25-2025 [facility] Start: 02-13-2024 [facility] Start: 02-12-2024 [facility] Patient Education [facility] Work Phone: Patient referral [facility] Work Phone: Payers Date Payer Category Payer Self-pay 2025 Unknown [id number] Unknown [id number] Unknown [id number] Unknown [id number] Unknown [id number] Social History Date Type Detail Facility Start: 02-12-2024 End: 02-13-2024 Tobacco smoking status MOIS Unknown if ever smoked [facility] Start: 1995 Sex Assigned At Male [facility] Start: 05-25-2025 End: 06-03-2025 Tobacco smoking status NHIS Never smoked tobacco (finding) [facility] Discharge summary 02-12-2024 Note Date & Type Note Facility 02-12-2024 Discharge summary Note Date/Time February 12, 2024 8:28am [facility] Medical Records Department [address] [place] [address] Emergency Department Summary 02/12/24 MR#: [id number] Acct: [id number] Name: MELY HENRY Rep #:[id number] : 1995 29 From: Dave Tejada MD PCP: Status:PRE ER Location: ED HPI HPI - GI History of Present Illness Chief Complaint: Abd Pain Detail of Chief Complaint: Abdominal pain with diarrhea Informant: patient Limited: language barrier (Use of official court interpreter total time 13 minutes) Abdominal Pain/Flank Pain Onset: Days (Onset 3 days ago) Context: Sudden Onset Timing: Continuous and Waxes and wanes Quality: Burning Location: - (Central abdomen) Current Severity: Mild Maximum Severity: Moderate Worsened by: Nothing Relieved by: - (Better after drinking coffee) Nausea/Vomiting/Emesis GI Symptom: Negative for Nausea or Vomiting Diarrhea/Melena/Hematochezia GI Symptom: Positive for Diarrhea; Negative for Melena or Hematochezia Onset: Days Stool Quality: Positive for Loose and Watery Severity: 14 past 24 hours Associated Symptoms Associated Symptoms: Negative for Dysuria, Frequency, Hematuria or Urgency Narrative Narrative: Patient is a 29-year-old male who is a British-speaking individual. Interpreterservice was used. His past history is remarkable for traumatic kidney injury requiring emergent surgery. He has a midline scar that goes from the xiphoid tothe pubic symphysis. He does endorse chills without fever. He does endorse intermittent diaphoresis. He states the pain is burning and outlines a large [place] around his umbilicus send centimeters in diameter. His scar is well-healed. He denies urologic symptoms. He reports diarrhea. Has not noted bloodor mucus in the diarrhea. is ill with similar symptoms. She is going to the bathroom frequently but does not have watery stool. He states he went to the urgent care. He was sent here because of his prior surgery and they would not be able to give him any pain medicine. He denies any recent trauma. He denies skin lesions. He denies similar discomfort. Prior similar symptoms: No Recent Illness/Hospitalization: No PFSH PFSH Medical History no medical history no medical history Home Medications dicyclomine 10 mg capsule 20 mg (2 x 10 mg) PO TIDAC #20 CAPSULES 02/12/24 [Rx Last Taken Unknown] Allergy/AdvReac Type Severity Reaction Status Date / Time No Known Allergies Allergy Verified 02/12/24 08:05 Surgical History (Updated 02/12/24 @ 08:16 by Lazara Donnelly) History of kidney surgery Social History (Updated 02/12/24 @ 08:[address] Dave Tejada MD) household members: spouse Smoking Status: Never smoker alcohol intake: current substance use type: does not use ROS ROS ED Constitutional Constitutional ED: Reports chills and sweats; Denies fever(s), subjective or weight loss ENT ENT ED: Denies ear pain, rhinorrhea or sore throat Cardiovascular Cardiovascular: Denies chest pain or palpitations Respiratory/Chest Respiratory/Chest: Denies cough, dyspnea or dyspnea on exertion Gastrointestinal Gastrointestinal: Reports abdominal pain and diarrhea; Denies constipation, melena, nausea or vomiting Genitourinary Genitourinary ED: Denies dysuria, hematuria or urinary frequency Musculoskeletal Musculoskeletal: Reports back pain; Denies arthralgias, myalgias or neck pain Integumentary Denies rash Neurologic Neurologic: Denies headache(s) Hematologic/Lymphatic Hematologic/Lymphatic: Denies easy bleeding or easy bruising EXAM Physical Exam Const Vital Signs: 02/12/24 08:04 Temperature 98 F Temperature Source Temporal Pulse Rate 79 Respiratory Rate 14 Blood Pressure 142/98 H Blood Pressure Mean 112 Pulse Ox 98 Oxygen Delivery Method Room Air Positive well nourished and well developed General Appearance ED: well developed and NAD HEENT Reports dry mucous membranes normocephalic and atraumatic Mouth ED: Yes dry mucous membranes Mouth: dry mucous membranes Eyes PERRL and EOMs intact bilaterally General Eye ED: Negative for pale conjunctiva or scleral icterus Neck no lymphadenopathy, supple and no JVD Resp normal respiratory effort and clear to auscultation bilaterally Cardio regular rate, regular rhythm, S1 normal heart sound, S2 normal heart sound and no murmurs GI non-tender, non-distended and no masses GI Narrative: There may be slight tympany to percussion. There is a well-healed midline incision. Auscultation: hypoactive bowel sounds Palpation: soft; Negative for tender, guarding, rigid, hepatomegaly, splenomegaly, hernia, mass or pulsatile mass Back/Spine no CVA tenderness Extremity General Extremety ED: Negative for edema or tenderness General Extremity: Negative for edema Neuro CN's II-XII intact bilaterally and moves all extremities Sensorium / Orientation: alert Psych mental status grossly normal and thought process normal Skin no wounds MDM MDM MDM Narrative Medical decision making narrative: # Differential diagnoses abdominal pain unknown etiology, enteritis, colitis, viral illness. Clinically patient is dehydrated. IV was established and 1 L normal saline was ordered. He was ordered dicyclomine for his pain and Imodium for his diarrhea. Patient metabolic panel was obtained to assess renal functionand evaluate for hypokalemia and in light of the amount of diarrhea patient is having. History & Record Review Additional record(s) reviewed:: No prior records Lab Data Attestation: I reviewed the patient's lab results. Lab results narrative: CBC is unremarkable. Hemoglobin slightly elevated 17.1 which would be consistent with dehydration. Basic metabolic panel is unremarkable. Glucose slightly elevated 112 with normal CO2 anion gap. Labs: Laboratory Results - last 24 hr 02/12/24 08:40 WBC 7.5 RBC 6.06 Hgb 17.1 H Hct 51.5 MCV 85.0 MCH 28.2 MCHC 33.2 RDW Std Deviation 38.5 RDW Coeff of Komal 12.6 Plt Count 332 MPV 9.7 Immature Gran % (Auto) 0.400 Neut % (Auto) 69.9 Lymph % (Auto) 22.4 [place] % (Auto) 5.9 Eos % (Auto) 0.9 Baso % (Auto) 0.5 Absolute Neuts (auto) 5.2 Absolute Lymphs (auto) 1.67 Nucleated RBC % 0 Sodium 137 Potassium 3.7 Chloride 103 Carbon Dioxide 28.0 Anion Gap 6 BUN 7 Creatinine 0.79 Estim Creat Clear Calc 152.80 Est GFR (MDRD) Af Amer 151 Est GFR (MDRD) Non-Af 125 BUN/Creatinine Ratio 8.9 L Glucose 112 H Calcium 9.7 Treatment and Re-Evaluation :: Patient was reassessed at 0937. Patient reports feeling better. He is official court interpreter service was used. He was informed laboratory results are normal. He was informed with the diagnosis is and plan. He had no questions. Therefore, will discharge to home Discharge Plan Triage Chief Complaint: Abd Pain ED Provider: Dave Tejada Dx/Rx/DC Orders Clinical Impression: Acute dehydration, Abdominal pain, acute, Diarrhea in adult patient Prescriptions: New dicyclomine 10 mg capsule 20 mg PO TIDAC Qty: 20 0RF Referrals: Lashonda Campo [Non-Staff] - 3-5 Days if not improving Activity Restrictions/Additional Instructions: Take Imodium as needed for diarrhea. Print Language: British Disposition Disposition: Home, Self Care What to do if you have Problems For any increased pain, shortness of breath, bleeding, nausea or vomiting, chestpain, or any unexpected problems, contact your Primary Care Provider. Call [facility] ([phone]) or report to the closest Emergency Room. Call 911 if necessary. 02/12/24 0942 <Electronically signed by Dave Tejada MD> Cosigner Signature (if applicable): CC: ~ Signed [facility] Work Phone: Evaluation note Note Date & Type Note Facility Evaluation note No assessment information availa ble [facility] Work Phone: Hospital Discharge instructions Note Date & Type Note Facility Hospital Discharge instructions Additional Instructions Take Imodium as needed for diarrhea. [facility] Work Phone: Hospital Discharge instructions Note Date & Type Note Facility Hospital Discharge instructions Additional Instructions Return to the emergency department with increased pain to your right groin, redness or firmness to the hernia, fever, nausea and vomiting, problems with bowel movements/lack of bowel movement, new or worsening symptoms. Follow-up with general surgery as soon as possible. [facility] Work Phone: Reason for referral (narrative) Note Date & Type Note Facility Reason for referral (narrative) No reason for referral information available [facility] Work Phone: Chief Complaint and Reason for Visit Chief Complaint ABD Chief Complaint ABD abd pain Chief Complaint Admit Date Groin pain May 25, 2025 4:55 pm Chief Complaint Admit Date Groin pain May 25, 2025 4:55 pm ED F/U- INGUINAL HERNIA June 03, 2025 3:03pm Advance Directives No Advanced Directives Records Found Advance Directive Response Recorded Date/ Time Living Will No February 12, 2024 8:17am Power of Garland Machine Operator No February 11 8:17am Advance Directive Response Recorded Date/ Time Living Will No February 13, 2024 6:11pm Power of Garland Machine Operator No February 12 6:11pm Advance Directive Response Recorded Date/ Time Do you have a Healthcare Power of Garland Machine Operator? No May 25, 2025 5:06pm Summary Purpose Family History No Family History Records Found Additional Source Comments Care Teams (unrecognized sec tion and content) Team Status: Active Member Role Status Dates No Primary Care Physician Primary Care Provider Active Team Status: Inactive Member Role Status Dates Dr. Dave Tejada MD Emergency Provider Active No Primary Care Physician Primary Care Provider Active Team Status: Inactive Member Role Status Dates No Primary Care Physician Primary Care Provider Active Dr. Tonio Ceballos DO Emergency Provider Active Team Status: Active Member Role/Relationship Status Dates No Primary Care Physician Primary Care Provider Active Team Status: Inactive Member Role/Relationship Status Dates No Primary Care Physician Primary Care Provider Active Start: May 25, 2025 End: May 25, 2025 Rolando Shelton MD Emergency Provider Active Star t: May 25, 2025 End: May 25, 2025 Team Status: Inactive Member Role/Relationship Status Dates No Primary Care Physician Primary Care Provider Active Start: May 25, 2025 End: May 25, 2025 Rolando Shelton MD Attending Provider Active Star t: May 25, 2025 End: May 25, 2025 Rolando Shelton MD Emergency Provider Active Star t: May 25, 2025 End: May 25, 2025 Team Status: Inactive Member Role/Relationship Status Dates No Primary Care Physician Primary Care Provider Active Start: June 03, 2025 End: June 03, 2025 No Primary Care Physician Referring Provider Active Start: June 03, 2025 End: June 03, 2025 Dr. Lolita Betts MD Attending Provider Active Start: June 03, 2025 End: June 03, 2025 Goals (unrecognized section and content) Goals may be documented in a n alternate sectionGoals may be documented in an alternate sectionGoals may be documented in an alternate sectionGoals may be documented in an alternate section (unrecognized sect ion and content) No Status Records Found INFORMATION SOURCE (unrecogn ized section and content) DATE CREATED AUTHOR 06/09/2025 [facility] FOR RECORDS PERTAINING TO PATIENTS WHO ARE OR HAVE BEEN ENROLLED IN A CHEMICAL DEPENDENCY/SUBSTANCEABUSE PROGRAM, SOME INFORMATION MAY BE OMITTED. This clinical summary was aggregated from multiple sources. Caution should be exercised in using it in the provision of clinical care. This summary normalizes information from multiple sources, and as a consequence, information in this document may materially change the coding, format and clinical context of patient data. In addition, data may be omitted in some cases. CLINICAL DECISIONS SHOULD BE BASED ON THE PRIMARY CLINICAL RECORDS. [facility] [employer] [facility]. provides no warranty or guarantee of the accuracy or completeness of information in this document.
--- NOTE | 2025-06-10 07:11 | EKG12_ITS ---
Test Reason : PRE-OP Blood Pressure : */* mmHG Vent. Rate : 77 BPM Atrial Rate : 77 BPM P-R Int : 148 ms QRS Dur : 84 ms QT Int : 354 ms P-R-T Axes : 30 64 27 degrees QTcB Int : 400 ms Normal sinus rhythm Normal ECG No previous ECGs available Confirmed by DARRIN OLIVIA, ZAK ([id number]), editorial director JACK TONY ([id number]) on 06/11/2025 6:32:05 AM Referred By: No Primary Care Physician Confirmed By: ZAK CLIFFORD MD
--- NOTE | 2025-06-10 07:25 | PCM.PRE.AN2 ---
ASA Classification* ASA Classification ASA Classification: 2 Assessment & Plan Anesthesia* Anesthesia Assessment Anesthesia Assessment: Discussed sedation and/or anesthesia options, risks, benefits, and alternatives with patient/parents/legal guardian/POA. Questions invited. The patient/parents/legal guardian/POA seems to understand and agrees to proceed with anesthesia plan. Reviewed the physical assessment, medical history, allergy history and patient home medications list prior to surgery/procedure/anesthetic and documented any changes. Performed airway and anesthesia risk assessments. Anesthesia Type Anesthesia Type: General History Source History Obtained from:: Patient Anesthesia Focused Assessment* Oxygen Delivery Method: Room Air Airway Assessment Mouth opens: >3 cm Mallampati Score: I Teeth Condition: Intact Neck Range of motion (ROM): Full ROM Labs Anesthesia Preop lab: CBC WBC 11.3 K/mm3 (4.4-11.0) H 02/13/24 19:18 02/13/24 RBC 5.74 M/mm3 (4.6-6.2) 02/13/24 19:18 02/13/24 Hgb 16.2 g/dL (13.0-16.5) 02/13/24 19:18 02/13/24 Hct 48.1 % (40-54) 02/13/24 19:18 02/13/24 Plt Count 333 K/mm3 (150-450) 02/13/24 19:18 02/13/24 CHEMISTRY Potassium 3.6 mmol/L (3.5-5.1) 02/13/24 19:18 02/13/24 Sodium 138 mmol/L (136-145) 02/13/24 19:18 02/13/24 BUN 8 mg/dL (7-18) 02/13/24 19:18 02/13/24 Creatinine 0.68 mg/dL (0.70-1.30) L 02/13/24 19:18 02/13/24 Glucose 99 mg/dL (74-106) 02/13/24 19:18 02/13/24 COAG Pre-Assessment Diagnosis/Proposed Procedure Planned Operative Procedure(s): OPEN RIGHT INGUINAL HERNIA WITH MESH Anesthesia History 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 When Was Last Pacemaker Check QUESTION #4 FULL TEXT: You/Your Family Experience fever (hyperthermia) with Anesthesia Last Oral Intake Last Oral intake: Last Oral Intake NPO since Meds taken in AM with sips of water? Meds patient instructed to take am of surgery PONV PONV - electrostatic powder coating technician: PONV - electrostatic powder coating technician Female No 06/09/25 08:10 HX of Motion Sickness No 06/09/25 08:10 HX of N/V After Surgery No 06/09/25 08:10 Non-Smoker No 06/09/25 08:10 Duration of Surgery greater No 06/09/25 08:10 than 60 minutes Number of Risk Factors PONV Score Height & Weight Height & Weight: Anesthesia: Height & Weight Height 6 ft 06/03/25 15:20 Respiratory Assessment Respiratory Assessment - electrostatic powder coating technician: Respiratory Tract Infection Hx - electrostatic powder coating technician Hx Respiratory Tract Infection No 06/09/25 08:10 STOP Sleep Apnea STOP Sleep Apnea - electrostatic powder coating technician: STOP Sleep Apnea - electrostatic powder coating technician Hx Hypertension No 06/09/25 08:10 Hx Sleep Apnea No 06/09/25 08:10 CPAP BIPAP Do you snore loudly (louder No 06/09/25 08:10 than talking or can be heard Do you often feel tired/ No 06/09/25 08:10 fatigued/ sleepy during daytime? Has anyone observed you stop No 06/09/25 08:10 breathing during sleep? STOP Results Negative 06/09/25 08:10 QUESTION #5 FULL TEXT : Do you snore loudly (louder than talking or can be heard through closed doors)? Tobacco Use History Tobacco Use History - electrostatic powder coating technician: Tobacco Use History - electrostatic powder coating technician Tobacco Use Smoking Status Never smoker 06/09/25 08:10 Hx Tobacco Use No 06/09/25 08:10 Years Smoking Packs Smoked per Day Smoking Cessation Date was within the last 15 years Hx Smoking Cessation Date Hx Smoking Cessation Counseling Hematologic Medial History Hematologic Hx - electrostatic powder coating technician: Hematologic Medical Hx - seed core operator Hx of Blood Transfusion No 06/09/25 08:10 Hx of Transfusion in last 3 No 06/09/25 08:10 Months Date of Last Transfusion (if within last 3 months) Ever experience any problems No 06/09/25 08:10 with transfusion(s)? Specify any problems Hx of Preganancy in last 3 N/A 06/09/25 08:10 Months Nurse Filling Out Transfusion [email or web address] 06/09/25 08:10 & Questions: Date: 06/09/25 06/09/25 08:10 Time: 08:13 06/09/25 08:10 Patient unable to answer at this time (ie. confused, unrespo /Reproduction History /Reproductive History - electrostatic powder coating technician: /Reproductive Hx- electrostatic powder coating technician Hx Now Gestational Age (in weeks): EDC: Hx Hx Para Hx Section SAB Active Medications Active Medications: Current Medications Generic Name Dose Route Start Last Admin Trade Name Freq PRN Reason Stop Dose Admin Cefazolin Sodium 2 gm/ Sodium 110 mls @ 200 mls/hr 06/10/25 09:00 Chloride IV 06/10/25 09:32 INTRAOP ONE Lactated Ringer's 1,000 mls @ 15 mls/hr 06/10/25 07:15 IV .Q48H SUELLEN PFSH Medical History Marijuana use Right inguinal hernia Stroke/cerebrovascular accident Home Medications ?Medication ?Instructions ?Recorded ?Last Taken ?Type NK 05/25/25 Unknown History Allergy/AdvReac Type Severity Reaction Status Date / Time No Known Allergies Allergy Verified 06/09/25 08:08 Family History (Updated 06/03/25 @ 15:19 by Solange Bates) Mother Diabetes Hypertension Surgical History History of kidney surgery Social History (Updated 06/03/25 @ 15:20 by Solange Bates) household members: spouse Smoking Status: Never smoker alcohol intake: current alcohol intake frequency: a few times a week Alcohol type: beer substance use type: marijuana Review of Systems (Anesthesia) ROS Narrative System reviewed and no additional complaints, except as documented.
--- NOTE | 2025-06-10 07:30 | HERN_PTH ---
PATIENT: MELY HENRY LOC: [facility] [place] [facility] U#:[id number] AGE/SX: 30/M ROOM: RE06/10/[address]: Dr. Lolita Betts MD : 1995 BED: DIS: 06/10/2025 SPEC #: [id number] RECD: 06/10/25 11:53 STATUS: MARLENE REYina #: [id number] JUJU: 06/10/25 07:[address]: Lolita Betts DEPT: SURGICAL PATHOLOGY RECD BY: Stanislav Singh ENTERED: 06/10/25 13:40 SP TYPE: Hernia OTHR DR: No Primary Care Phys Tissues: A - HERNIA Procedures: Surgery Specimen Level II HEADER OPERATION: Hernia, open right inguinal with mesh PRE-OP DIAGNOSIS: Right inguinal hernia TISSUE SUBMITTED: A- Hernia sac MICROSCOPIC DIAGNOSIS A. Hernia sac, inguinal, open excision: - Fibromembranous tissue with smooth muscle, partially covered by an attenuated mesothelium with reactive changes, consistent with hernia sac. MICROSCOPIC DESCRIPTION Slides are reviewed. GROSS DESCRIPTION A. Received in formalin labeled with the patient's name and date of . Designated as hernia sac is an 8.9 x 3.7 x 1.4 cm calvo-pink to red focally cauterized portion of semimembranous tissue. Level Vial Setter sections are submitted in 1 cassette. FL 06/10/2025 CPT:70785
--- NOTE | 2025-06-10 07:34 | HP.PCM_ITS ---
History and Physical Date of Admission: 06/10/25 Date of Service: 06/03/25 MR#: [id number] Acct: [id number] Name: MELY HENRY Rep #: [id number] : 1995 Provider: Dr. 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 Lolita Betts MD) Right inguinal hernia Stroke/cerebrovascular accident Surgical History (Updated 06/03/25 @ 16:[address] Lolita Betts MD) History of kidney surgery Family History (Updated 06/03/25 @ 15:19 by Solange Bates) Mother Diabetes Hypertension Social History (Updated 06/03/25 @ 15:20 by Solange Bates) household members: spouse Smoking Status: Never smoker alcohol intake: current alcohol intake frequency: a few times a week Alcohol t ype: beer substance use type: marijuana HPI HPI HPI: 30-year-old male presents due to right inguinal hernia. 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 Patient states she has had it for 2 years however has been getting larger over time and does do heavy lifting for work and he has a bulge and this is bothersome. Patient states occasionally does get hard patient does reduce at home. Patient did previously have surgery in [facility] in 2019 that he may have had cancer in the stomach or kidney found out is just bleeding and patient had ex lap and drain placements after that. Following surgery patient did also have stroke which he just took anticoagulation. ROS General General: No weight change, appetite, fatigue, colon cancer or breast cancer HEENT HEENT: No difficulty swallowing, eye injury, eye surgery, swollen glands or hoarseness Endo Endocrine: No thyroid disease, diabetes mellitus, thyroid cancer, Hair loss, heat intolerance or cold intolerance Skin Skin: No rash or changing moles Musc Musculoskeletal: No back problems, arthritis, rheumatoid arthritis, gout or joint pain Cardio Cardiovascular: No murmur, pacemaker, heart disease, atrial fibrillation, high blood pressure, heart attack, heart stent, palpitations, shortness of breath with exertion or chest pain Psych Psychiatric: No depression, anxiety or hearing voices Resp Respiratory: No shortness of breath, No sleep apnea, No cough, No COPD, No asthma, No emphysema and No wheezing Gastro Gastrointestinal: No abdominal pain, No nausea or vomiting, Yes diarrhea, No constipation, No blood in stool, No acid reflux, No hemorrhoids, No ulcers, No gallbladder problem and No black,tarry stools Reyes Hematologic: No blood thinners, No blood disorders, No bleeding, No anemia and No blood clots Neuro Neurologic: No numbness and No tingling ROS Narrative h/o stroke approx 6 years ago Exam Const General: cooperative, healthy appearing, comfortable and no acute distress [facility] Head: normocephalic and atraumatic Neck Neck: supple Resp Effort & Inspection: normal respiratory effort Cardio Rate: regular rate GI Inspection: non-distended and scar (Well-healed midline incision bilateral mid abdomen previous drain sites) Palpation: soft, hernia (Large right inguinal hernia-reducible) and nontender Skin General: no rashes or lesions noted Neuro General: CN's II-XI intact bilaterally Extrem General: normal to inspection Psych Mental Status: mental status grossly normal Attitude: cooperative Assessment and Plan Assessment and Plan (1) Right inguinal hernia: Status: Acute Plan Plan to do a open right inguinal hernia repair with mesh due to patient's previous large midline incision. Reviewed the procedure with the patient including the risks, including but not limited to infection, bleeding, paresthesia, chronic pain, injury to small bowel or contents of the spermatic cord, and recurrence. All questions were answered. Lolita Betts M.D. Pager: [phone] [facility] [address] [place] [address], [facility], [address] [place] [address] Office: [phone] Coding Level of Care Code Off vis,new,level 4 Diagnoses Right inguinal hernia K40.90 06/03/25 1613 <Electronically signed by Lolita Betts MD> Date Lolita Betts MD
[2025-06-10] MEDS: Lactated Ringers 1,000 ML 15 ML IV ×2 (07:43→10:10)
[2025-06-10 07:44] LABS: Hematocrit 46.1 % (40-54); Hemoglobin 15.3 g/dL (13.0-16.5); Immature Granulocytes Count 0.030 X10^3/uL (0.0-0.0); Mean Corp Hgb Conc 33.2 g/dL (32-36); Mean Corpuscular Volume 85.4 fL (80-94); Mean Platelet Vol. 9.9 fl (6.2-12.0); NRBC Flagged by Analyzer 0 % (0-5); Platelet Count 223 K/mm3 (150-450); RBC Distribution Width CV 12.8 % (11.6-14.6); RBC Distribution Width SD 39.3 fl (35.1-43.9); Red Blood Count 5.40 M/mm3 (4.6-6.2); White Blood Count 7.1 K/mm3 (4.4-11.0)
[2025-06-10 08:21] LABS: Anion Gap 11 (5-15); BUN 13 mg/dL (4-19); BUN/Creat Ratio 18.7 RATIO (10-20); Calcium,Total 9.2 mg/dL (7.6-11.0); Carbon Dioxide 26.1 mmol/L (21.0-32.0); Chloride 104 mmol/L (98-108); Estimated Creatinine Clearance 178.56 ml/min (50-250); Glucose 97 mg/dL (70-99); Potassium 4.0 mmol/L (3.3-5.1)
[2025-06-10] MEDS: Lidocaine 1% /Epi 1:100 (20ml) 20 ML Vial (09:21)
--- NOTE | 2025-06-10 09:23 | OP.PCM_ITS ---
Operative Report (Standard) Operative Information Date of Procedure: 06/10/25 Pre-Operative Diagnosis: Right indirect inguinal hernia Post-Operative Diagnosis: Same Surgery/Procedure Performed: Open right inguinal hernia repair with mesh change management manager: Yes Certified Scrub Tech: Jewel Zelaya Tasks completed by cutting table operator first: Opening & closing and Retracting Type of Anesthesia: General/Supplemental RN Documented Start/Stop Times: Operation Date: 06/10/25 07:30 Case Time Into Pre-Op 06/10/25 07:09 Anesthesia Start 06/10/25 07:50 Into Room 06/10/25 07:50 Procedure Start 06/10/25 08:08 Procedure End 06/10/25 09:31 Anesthesia End 06/10/25 09:43 Out of Room 06/10/25 09:43 Into Recovery 06/10/25 09:45 Procedure Start Time: 08:08 Procedure Stop Time: 09:31 Select all DRAINS/GRAFTS/IMPLANTS that apply: Prosthetic device Prosthetic device details: Bard mesh preshaped rep [id number] Special Medications: Ancef 2 g IV x 1 Estimated Blood Loss: < 10 cc Specimen collected: Yes Description of specimen(s) removed: Hernia sac Description of surgery: Indications: This is a 30-year-old male who developed right inguinal hernia. Open right inguinal hernia repair with mesh was elected due to previous ex lap in [facility]. Description procedure: The patient was taken to the operating room. A timeout was completed verifying correct patient, procedure, site, positioning, and special equipment prior to beginning procedure. General anesthesia was induced. The right groin was prepped and draped in usual sterile fashion. An incision was marked in the natural skin crease and planned in the near the pubic tubercle. A field block was produced by raising skin wheals along the proposed incision in a skin wound was raised about 1 cm medial to the anterior superior iliac spine using 0.5% Marcaine for a total of 10 mL. Skin incision was made with the knife and deepened through the Lyric and Ca mper's fascia with electrocautery until the aponeurosis of the external oblique was a identified. This was cleaned and the external ring exposed. Hemostasis was achieved in the wound. An incision was made in the midpoint of the external oblique aponeurosis in the direction of its fibers. The ilioinguinal nerve was identified and protected throughout the dissection. Flaps of the external obliq ue were developed cephalad and inferiorly. The cord was identified. It was gently dissected free at the pubic tubercle and encircled with a Araceli drain. Attention was directed to the anterior medial aspect of the cord where an indirect hernia sac was identified. A large sac sac was carefully dissected free from the cord down to the level of the internal ring. The vas and the testicular vessels were identified and protected from harm. The sac was opened and contents reduced. A finger was passed into the peritoneal cavity and the floor of the inguinal canal was assessed and found to be adequate. The femoral canal was palpated and no hernia identified. The sac was twisted and suture ligated with a 0 silk. Redundant sac was excised and submitted to pathology. The stump of the sac was checked for hemostasis and allowed to retract into the abdomen. Attention then turned to the floor of the canal which appeared to be weakened without a well-defined defect or sac. A Bard keyhole mesh was cut to the appropriate size. Beginning at the pubic tubercle, the mesh was sutured to the inguinal ligament inferiorly and the conjoined tendon superiorly using 2-0 Prolene interrupted sutures. Care was taken to assure the mesh was placed in the last fashion to avoid excess tension and no neurovascular structures were caught in the repair. Laterally the tails of mesh were crossed and the internal ring recreated, allowing for passage of the surgeon's 5th fingertip. Hemostasis was again checked. The [place] drain was removed. Area was irrigated with saline. External oblique aponeurosis was closed running suture of 3-0 Vicryl, taking care not to catch the ilioinguinal nerve in the suture line. Lyric's fascia was closed with interrupted sutures of 3-0 Vicryl. Skin was closed running subcuticular suture of 4-0 Monocryl with Steri-Strips gauze and Tegaderm. The testes was gently pulled down to the anatomical position the scrotum. Patient tolerated the procedure well and sent to the postanesthesia care in stable condition. Surgical Findings: See operative report Complications Complications: No
--- NOTE | 2025-06-10 09:26 | EX.PCM.DISCH ---
Discharge Instructions Procedure Hernia Diet Discharge Diet: Light diet - advance as tolerated Activity Discharge Activity: May Not Drive (for 2-3 days or while taking narcotic pain meds.) and May Shower (with the bandage in place 24 hours after surgery) Lifting Restrictions: 20 pounds for 8 weeks. Additional Activity Instructions:: Climbing stairs is fine, walking is encouraged. Sitting in bed may be uncomfortable. Do not drive, work heavy equipment of sign legal documents for 24 hours. You may have scrotal swelling, an ice pack and/or athletic support can provide more comfort. Pain medications may cause nausea, you should typically eat light foods as you take your pain medications. Pain medications may also cause constipation take Tylenol or ibuprofen and only the Oxy IR if needed. If no bowel movement 1 to 2 days after surgery recommend taking some MiraLAX (can take more than 1 dose in a day). If you have difficulty with this, discuss with your doctor. Dressing / Incision Call your doctor if your incision/area has: Continuous Slow Oozing, Sudden Increased Bleeding, Increased Pain/ Swelling, Increased Redness and Foul Smelling Discharge Call your doctor if you observe: Fever of 101 or Higher Suture Line Care: Avoid Pulling/Pushing and Avoid Pinching/Bending Change Dressing in: 3 days (Leave steri-strips in place for 10 days if do not follow-up okay to remove. ) Additional Dressing/Incision Instructions:: Leave the operative bandage on for 2-3 days. When you remove the bandage, leave the steri-strips on place until they fall off however okay to remove after 10 days. Follow Up Care Please Follow Up With: Lolita Betts MD When: Please call [phone] for a follow up appointment in 2 weeks Test Results: Test results from this visit will be discussed in further detail at your follow-up appointment, if applicable. Discharge Plan Admission Attending Provider: Lolita Betts Primary Care Provider: Care Physician,No Primary Instructions Additional Instructions / Restrictions: Okay to take ibuprofen 400-600 mg PO q6hr PRN and Tylenol 650 to 1000 mg p.o. every 6 hours as needed along with the oxycodone. Take all pain meds with food. Oxycodone can cause constipation recommend taking daily stool softener (i.e. Colace/docusate) while taking the pain meds. Recommend starting some MiraLAX in 1 to 2 days if no bowel movement. If still no bowel movement the following day recommend taking additional MiraLAX versus magnesium citrate half the bottle and waiting 4-6 hours if still no results take the other half the bottle. Print Language: Andorran Discharge Orders/Prescriptions Prescriptions: New oxycodone 5 mg capsule 5 mg PO Q6H PRN (Reason: pain) 3 Days Qty: 14 0RF No Action NK Referrals / Follow Up: Care Physician,No Primary [Primary Care Provider] - Disposition Disposition (needs filled in before D/C Order can be placed): Home, Self Care
--- NOTE | 2025-06-10 09:58 | PCM.POST.ANE ---
Anesthesia: Postop Eval I Current Vital Signs Temperature: 97 F Pulse Rate: 80 Blood Pressure: 121/86 Respiratory Rate: 16 Pulse Ox: 100 Oxygen Delivery Method: Room Air Assessment Airway patent: Yes Spontaneous unlabored respirations: Yes Mental status: Awake and Calm nausea: No Vomiting: No Anesthesia Complication: No Fluid Hydration Crystalloid volume administer (ml): 1,000 Total IV fluid infused: 1,000 Progress Note Anesthesia document: Postop Eval 1 completed: Yes
--- NOTE | 2025-06-10 10:52 | POSTOPAN2_ITS ---
Anesthesia Postop Eval I Sum Postop Eval Completion status Anesthesia document: Postop Eval 1 completed: Yes Anesthesia Postop Eval I Summary Anesthesia Postop Eval I Summary: Anesthesia Postop Eval I: Assessment Summary Airway patent Yes 06/10/25 09:58 ETHYLBENZENE CRACKING SUPERVISOR.GDOTT Spontaneous unlabored Yes 06/10/25 09:58 ETHYLBENZENE CRACKING SUPERVISOR.GDOTT respirations Mental status Awake,Calm 06/10/25 09:58 ETHYLBENZENE CRACKING SUPERVISOR.GDOTT nausea No 06/10/25 09:58 ETHYLBENZENE CRACKING SUPERVISOR.GDOTT Vomiting No 06/10/25 09:58 ETHYLBENZENE CRACKING SUPERVISOR.GDOTT Anesthesia Postop Eval I: Fluid Summary Crystalloid volume administer 1,000 06/10/25 09:58 ETHYLBENZENE CRACKING SUPERVISOR.GDOTT (ml) Colloids volume administered ( ml) Blood Product volume administered (ml) Total IV fluid infused 1,000 06/10/25 09:58 ETHYLBENZENE CRACKING SUPERVISOR.GDOTT Anesthesia Postop Eval I: Summary Notes Anesthesia Complication No 06/10/25 09:58 ETHYLBENZENE CRACKING SUPERVISOR.GDOTT Anesthesia Complication Comment: Post-operative progress note Anesthesia: Postop Eval II Evaluation Mental status: Awake Pain Level: 4 nausea: Yes Vomiting: No Progress Note Post-operative progress note: Nausea treated with IV Zofran, otherwise doing well Complications Anesthesia Complication: No
--- NOTE | 2025-06-10 10:52 | PCM.POSTANE2 ---
Anesthesia Postop Eval I Sum Postop Eval Completion status Anesthesia document: Postop Eval 1 completed: Yes Anesthesia Postop Eval I Summary Anesthesia Postop Eval I Summary: Anesthesia Postop Eval I: Assessment Summary Airway patent Yes 06/10/25 09:58 HIDES INSPECTOR.GDOTT Spontaneous unlabored Yes 06/10/25 09:58 HIDES INSPECTOR.GDOTT respirations Mental status Awake,Calm 06/10/25 09:58 HIDES INSPECTOR.GDOTT nausea No 06/10/25 09:58 HIDES INSPECTOR.GDOTT Vomiting No 06/10/25 09:58 HIDES INSPECTOR.GDOTT Anesthesia Postop Eval I: Fluid Summary Crystalloid volume administer 1,000 06/10/25 09:58 HIDES INSPECTOR.GDOTT (ml) Colloids volume administered ( ml) Blood Product volume administered (ml) Total IV fluid infused 1,000 06/10/25 09:58 HIDES INSPECTOR.GDOTT Anesthesia Postop Eval I: Summary Notes Anesthesia Complication No 06/10/25 09:58 HIDES INSPECTOR.GDOTT Anesthesia Complication Comment: Post-operative progress note Anesthesia: Postop Eval II Evaluation Mental status: Awake Pain Level: 4 nausea: Yes Vomiting: No Progress Note Post-operative progress note: Nausea treated with IV Zofran, otherwise doing well Complications Anesthesia Complication: No
== END 2025-06-10 12:20 | disposition home or self-care (01) ==
LOC: SDC 07:08 → AC 07:08
PROVIDERS: Anesthesiology; Visit Provider Surgery
PROC: (CPT 49505; principal; 2025-06-10 07:15)
DX: K40.90 Unilateral inguinal hernia, without obstruction or gangrene, not specified as recurrent (principal)
CPT/HCPCS: 49505; 80048; 85025; 88302; 93005; C1781; J2405